=== PATIENT | female | born 1945 | race Caucasian/White ===

== ENCOUNTER 2025-04-06 10:07 | Outpatient (CLI) | payer MEDICARE | END 2025-04-06 10:08 | disposition home or self-care (01) | LOC: CSHMAMMO 10:07 | PROVIDERS: ATTEND Nurse Practitioner Family | DX: Z78.0 Asymptomatic menopausal state (principal); M81.0 Age-related osteoporosis without current pathological fracture | CPT/HCPCS: 77080 ==